=== PATIENT | female | born 1960 | race Caucasian/White ===

== ENCOUNTER 2021-01-08 14:59 | Emergency (ER) | payer MEDICARE, OTHER ==
[~2021-01-08 14:59] MED LIST changes: -ALLEGRA ALLERG180 MG PO; -ASPIRIN EC81 MG PO; -BENICAR HCT 201 EACH PO; -BENTYL 20MG TAB20 MG PO; -BUSPIRONE HCL30 MG PO; -CYMBALTA60 MG PO; -DEXILANT60 MG PO; -ELAVIL 50 MG TA50 MG PO; -ESTRADIOL0.5 MG PO; -FIBER625 MG PO; -FLONASE 0.05% N16 GM; -HYDROXYZINE HCL25 MG PO; -IBUPROFEN800 MG PO; -NOVOLOG 10100 UNITS1 INJ; -OMNIPOD DASH1 EACH SQ; -PREDNISONE 10 M10 MG PO; -PROBIOTIC1 EAC1 PO; -SINGULAIR10 MG PO; -SYMBICORT 16010.2 GM INH; -VENTOLIN HFA 66.7 GM INH; -VIBRAMYCIN100 MG PO; -VITAMIN D21250 MCG PO; -ZANAFLEX4 MG PO
[2021-01-08 19:44] LABS: HEMOGLOBIN 10.7 gm/dl (12.3-15.3); RED BLOOD COUNT 3.84 M/UL (4.00-5.10); WHITE BLOOD COUNT 13.9 K/UL (4.5-11.0)
== END 2021-01-08 20:39 | disposition home or self-care (01) ==
LOC: ER1 14:59
PROVIDERS: Family Medicine
DX: R51.9 Headache, unspecified (principal); E11.65 Type 2 diabetes mellitus with hyperglycemia; I10 Essential (primary) hypertension; Z90.710 Acquired absence of both cervix and uterus; Z91.040 Latex allergy status; Z88.8 Allergy status to other drugs, medicaments and biological substances; Z90.89 Acquired absence of other organs
CPT/HCPCS: 36415; 70496; 70498; 70553; 80048; 82565; 84520; 85025; 93005; 99284; A9577; Q9967

== ENCOUNTER → 2021-01-08 | Outpatient (CLI) | payer MEDICARE, OTHER ==
[~2021-01-08] MED LIST: ALLEGRA ALLERG180 MG PO; ASPIRIN EC81 MG PO; BENICAR HCT 201 EACH PO; BENTYL 20MG TAB20 MG PO; BUSPIRONE HCL30 MG PO; CYMBALTA60 MG PO; DEXILANT60 MG PO; ELAVIL 50 MG TA50 MG PO; ESTRADIOL0.5 MG PO; FIBER625 MG PO; FLONASE 0.05% N16 GM; HYDROXYZINE HCL25 MG PO; IBUPROFEN800 MG PO; NOVOLOG 10100 UNITS1 INJ; OMNIPOD DASH1 EACH SQ; PHENERGAN 12.12.5 M1 PO; PREDNISONE 10 M10 MG PO; PROBIOTIC1 EAC1 PO; SINGULAIR10 MG PO; SYMBICORT 16010.2 GM INH; VENTOLIN HFA 66.7 GM INH; VIBRAMYCIN100 MG PO; VITAMIN D21250 MCG PO; ZANAFLEX4 MG PO; ZOFRAN ODT 4 MG4 MG PO
== END ==
LOC: MRI 10:20
DX: R51.9 Headache, unspecified (principal); I67.82 Cerebral ischemia
CPT/HCPCS: 36415; 70553; 82565; 84520; A9577

== ENCOUNTER 2021-01-16 11:17 | Emergency (ER) | payer MEDICARE, OTHER ==
[~2021-01-16] VITALS: Ht 160 cm; Wt 106.6 kg
[2021-01-16 13:18] LABS: HEMOGLOBIN 14.1 gm/dl (12.3-15.3); RED BLOOD COUNT 4.93 M/UL (4.00-5.10); WHITE BLOOD COUNT 16.7 K/UL (4.5-11.0)
[2021-01-16 13:45] LABS: BUN/CREATININE RATIO 25 (0-10)
[2021-01-16] MEDS ORDERED: VIBRAMYCIN100 MG PO (14:28)
[2021-01-16] MEDS ORDERED: CYMBALTA60 MG PO (14:28)
[2021-01-16] MEDS ORDERED: OMNIPOD DASH1 EACH SQ (14:29)
[2021-01-16] MEDS ORDERED: PREDNISONE 10 M10 MG PO (14:29)
[2021-01-16] MEDS ORDERED: IBUPROFEN800 MG PO (14:30)
[2021-01-16] MEDS ORDERED: FLONASE 0.05% N16 GM (14:30)
[2021-01-16] MEDS ORDERED: ZANAFLEX4 MG PO (14:30)
[2021-01-16] MEDS ORDERED: SYMBICORT 16010.2 GM INH (14:31)
[2021-01-16] MEDS ORDERED: ELAVIL 50 MG TA50 MG PO (14:31)
[2021-01-16] MEDS ORDERED: NOVOLOG 10100 UNITS1 INJ (14:32)
[2021-01-16] MEDS ORDERED: DEXILANT60 MG PO (14:33)
[2021-01-16] MEDS ORDERED: VITAMIN D21250 MCG PO (14:33)
[2021-01-16] MEDS ORDERED: BUSPIRONE HCL30 MG PO (14:33)
[2021-01-16] MEDS ORDERED: HYDROXYZINE HCL25 MG PO (14:34)
[2021-01-16] MEDS ORDERED: ESTRADIOL0.5 MG PO (14:34)
[2021-01-16] MEDS ORDERED: BENICAR HCT 201 EACH PO (14:35)
[2021-01-16] MEDS ORDERED: BENTYL 20MG TAB20 MG PO (14:36)
[2021-01-16] MEDS ORDERED: SINGULAIR10 MG PO (14:36)
[2021-01-16] MEDS ORDERED: ALLEGRA ALLERG180 MG PO (14:36)
[2021-01-16] MEDS ORDERED: VENTOLIN HFA 66.7 GM INH (14:38)
[2021-01-16] MEDS ORDERED: ASPIRIN EC81 MG PO (14:59)
[2021-01-16] MEDS ORDERED: PROBIOTIC1 EAC1 PO (15:00)
[2021-01-16] MEDS ORDERED: FIBER625 MG PO (15:00)
== END 2021-01-17 02:00 | disposition short-term general hospital (02) ==
LOC: ER1 11:17 → CDU 14:21 → ER1 14:21 → CDU 14:21
PROVIDERS: Emergency Medicine
DX: I63.9 Cerebral infarction, unspecified (principal); E11.9 Type 2 diabetes mellitus without complications; I10 Essential (primary) hypertension; Z88.5 Allergy status to narcotic agent; Z20.822 Contact with and (suspected) exposure to COVID-19
CPT/HCPCS: 31500; 70450; 71045; 80053; 81001; 82550; 82553; 82962; 83874; 84484; 85025; 87086; 92610; 93005; 94002; 96372; 96374; 96375; 99285; J0171; J0330; J0696; J1200; J2060; J2250; J2704; J2930; J3475; J7070; U0002

== ENCOUNTER 2022-04-26 09:22 | Inpatient (IN) | payer MEDICARE, OTHER ==
[~2022-04-26] VITALS: Ht 160 cm; Wt 109.9 kg
[~2022-04-26 09:22] MED LIST changes: +ALLEGRA ALLERG180 MG PO; +AMOXICILLIN500 M1 PO; +ASPIRIN EC81 MG PO; +BENICAR HCT 201 EACH PO; +BENTYL 20MG TAB20 MG PO; +BUSPIRONE HCL15 MG PO; +CYMBALTA60 MG PO; +DEXILANT60 MG PO; +DIGESTIVE ADVA1 EAC1 PO; +ELAVIL 50 MG TA50 MG PO; +ESTRADIOL0.5 MG PO; +FIBER625 MG PO; +FLONASE 0.05% N16 GM; +HYDROXYZINE HCL25 MG PO; +IBUPROFEN800 MG PO; +NOVOLOG 10100 UNITS/ SQ; +OMNIPOD DASH1 EACH SQ; +PREDNISONE 10 M10 MG PO; +SINGULAIR10 MG PO; +SYMBICORT 16010.2 GM INH; +VENTOLIN HFA 66.7 GM INH; +VIBRAMYCIN100 MG PO; +VITAMIN D21250 MCG PO; +ZANAFLEX4 MG PO
[2022-04-26 10:28] LABS: HEMOGLOBIN 11.4 gm/dl (12.3-15.3); RED BLOOD COUNT 4.24 M/UL (4.00-5.10); WHITE BLOOD COUNT 8.4 K/UL (4.5-11.0)
[2022-04-26 11:30] LABS: BUN/CREATININE RATIO 18 (0-10)
[2022-04-26] MEDS ORDERED: TRAZODONE HCL100 MG PO (15:07)
[2022-04-26] MEDS ORDERED: POTASSIUM CHLO10 ME1 PO (15:11)
[2022-04-26] MEDS ORDERED: DICLOFENAC SODI50 MG PO (15:13)
[2022-04-26] MEDS ORDERED: CLOPIDOGREL75 MG PO (15:20)
[2022-04-26] MEDS ORDERED: LOSARTAN POTASS50 MG PO (15:22)
[2022-04-26] MEDS ORDERED: CETIRIZINE HCL10 MG PO (15:26)
[2022-04-26] MEDS ORDERED: GABAPENTIN300 MG PO (15:29)
[2022-04-26] MEDS ORDERED: ATORVASTATIN CA10 MG PO (15:33)
[2022-04-26] MEDS ORDERED: TYLENOL 8 HOUR650 MG PO (15:35)
[2022-04-26] MEDS ORDERED: CITALOPRAM HBR20 MG PO (15:36)
[2022-04-27 00:53] LABS: HEMOGLOBIN 11.3 gm/dl (12.3-15.3); RED BLOOD COUNT 4.2 M/UL (4.00-5.10); WHITE BLOOD COUNT 9.2 K/UL (4.5-11.0)
[2022-04-27 01:16] LABS: BUN/CREATININE RATIO 18 (0-10)
--- NOTE | 2022-04-27 08:15 | NUR ---
PT CALLED OUT SAID SHE WAS HURTING IN HER CHEST, VITALS STABLE B/P 135/72 PULSE 88 RESP 16 OXYGEN 100% DR WILDER NOTIFIED. NEW ORDERS GIVEN EKG, TROPONINS, MORPHINE AND NITRO. AFTER RECIEVING MORPHINE PT STATED RELIEF AND WANTED TO WAIT ON NITRO. CARDIOLOGY CONSULT AND WILL CONTINUE TO MONITOR PATIENT.
[2022-04-28 02:12] LABS: WHITE BLOOD COUNT 7.9 K/UL (4.5-11.0)
[2022-04-28 02:13] LABS: RED BLOOD COUNT 3.7 M/UL (4.00-5.10)
[2022-04-29 02:03] LABS: HEMOGLOBIN 10.6 gm/dl (12.3-15.3); RED BLOOD COUNT 3.88 M/UL (4.00-5.10); WHITE BLOOD COUNT 7.4 K/UL (4.5-11.0)
[2022-04-29 02:28] LABS: BUN/CREATININE RATIO 25 (0-10)
[2022-04-30 05:46] LABS: HEMOGLOBIN 11.3 gm/dl (12.3-15.3); RED BLOOD COUNT 4.21 M/UL (4.00-5.10); WHITE BLOOD COUNT 9.2 K/UL (4.5-11.0)
[2022-04-30 06:05] LABS: BUN/CREATININE RATIO 24 (0-10)
[2022-05-01] MEDS ORDERED: JARDIANCE10 MG PO (11:54)
[2022-05-01] MEDS ORDERED: BUMETANIDE1 MG PO (11:54)
[2022-05-01] MEDS ORDERED: ALDACTONE 25MG25 MG PO (11:54)
[2022-05-01] MEDS ORDERED: METOPROLOL SUCC25 MG PO (11:54)
== END 2022-05-01 13:35 | disposition home or self-care (01) | DRG 286 ==
LOC: ER1 09:22 → CDU 12:52 → MED SURG 4 12:52 → CDU 12:52 → MED SURG 4 15:45
PROVIDERS: Emergency Medicine; Internal Medicine; Internal Medicine Cardiovascular Disease; Physician Assistant; ADMIT Internal Medicine
PROC: B24BZZZ Ultrasonography of Heart with Aorta (ICD-10-PCS; 2022-04-27)
PROC: 4A023N7 Measurement of Cardiac Sampling and Pressure, Left Heart, Percutaneous Approach (ICD-10-PCS; principal; 2022-04-29)
PROC: B2111ZZ Fluoroscopy of Multiple Coronary Arteries using Low Osmolar Contrast (ICD-10-PCS; 2022-04-29)
DX: I11.0 Hypertensive heart disease with heart failure (principal); I50.23 Acute on chronic systolic (congestive) heart failure; Z68.41 Body mass index [BMI] 40.0-44.9, adult; I69.354 Hemiplegia and hemiparesis following cerebral infarction affecting left non-dominant side; Z20.822 Contact with and (suspected) exposure to COVID-19; I42.0 Dilated cardiomyopathy; I25.10 Atherosclerotic heart disease of native coronary artery without angina pectoris; I35.0 Nonrheumatic aortic (valve) stenosis; I07.1 Rheumatic tricuspid insufficiency; E11.649 Type 2 diabetes mellitus with hypoglycemia without coma; I16.0 Hypertensive urgency; F41.9 Anxiety disorder, unspecified; I25.5 Ischemic cardiomyopathy; F32.A Depression, unspecified; E03.9 Hypothyroidism, unspecified; E66.01 Morbid (severe) obesity due to excess calories; Z79.82 Long term (current) use of aspirin; Z79.01 Long term (current) use of anticoagulants; Z79.4 Long term (current) use of insulin; Z98.891 History of uterine scar from previous surgery; Z90.710 Acquired absence of both cervix and uterus; Z90.49 Acquired absence of other specified parts of digestive tract; Z98.890 Other specified postprocedural states; Z88.8 Allergy status to other drugs, medicaments and biological substances; Z88.6 Allergy status to analgesic agent; Z83.3 Family history of diabetes mellitus; Z87.891 Personal history of nicotine dependence; Z68.35 Body mass index [BMI] 35.0-35.9, adult
CPT/HCPCS: ECHO; 36415; 71045; 80048; 80053; 82550; 82553; 82962; 83880; 84484; 85025; 85379; 87086; 93005; 93306; 93971; 94640; 94664; 94760; 96374; 99152; 99153; 99285; C1769; C1887; C1894; J1644; J2250; J2270; J3010; Q9967

== ENCOUNTER 2022-06-01 16:03 | Emergency (ER) | payer MEDICARE, MEDICAID ==
[~2022-06-01 16:03] MED LIST changes: +ALDACTONE 25MG25 MG PO; +ATORVASTATIN CA10 MG PO; +BUMETANIDE1 MG PO; +CETIRIZINE HCL10 MG PO; +CITALOPRAM HBR20 MG PO; +CLOPIDOGREL75 MG PO; +DICLOFENAC SODI50 MG PO; +GABAPENTIN300 MG PO; +JARDIANCE10 MG PO; +LOSARTAN POTASS50 MG PO; +METOPROLOL SUCC25 MG PO; +POTASSIUM CHLO10 ME1 PO; +TRAZODONE HCL100 MG PO; +TYLENOL 8 HOUR650 MG PO
== END 2022-06-01 16:55 | disposition home or self-care (01) ==
LOC: ER1 16:03
DX: R04.0 Epistaxis (principal); I11.0 Hypertensive heart disease with heart failure; I50.9 Heart failure, unspecified; E11.9 Type 2 diabetes mellitus without complications; J45.909 Unspecified asthma, uncomplicated; Z79.02 Long term (current) use of antithrombotics/antiplatelets; Z87.891 Personal history of nicotine dependence
CPT/HCPCS: 99283